=== PATIENT | female | born 1980 | race Caucasian/White ===

== ENCOUNTER 2017-04-10 10:32 | Emergency (ER) | payer SELFPAY ==
--- NOTE | 2017-04-10 10:33 | ED Physician Documentation ---
General Adult - HISTORIAN Historian: patient - HPI Stated Complaint: right shoulder pain Chief Complaint: Shoulder Injury/ Pain Onset: days ago (3) Timing: still present Severity: mild Further Comments: yes (She states 3 days ago she was throwing hay when feeding her animals and she notes that she has had some pain in the right shoulder since. She has no decreased ROM. She does have pain with active elevation. She states she has no relief with heat/ice/OTC meds. Denies any previous injury.) Last known Well Code/Unknown Code: Unknown - ROS CONST: no problems EYES/ENT: none CVS/RESP: none GI/: none MS/SKIN/LYMPH: none - PAST HX Past History: none Other History: none Surgeries/Procedures: hysterectomy, other (Gallbladder, Appy, T&A) Immunizations: UTD - SOCIAL HX Smoking History: non-smoker Alcohol Use: none Drug Use: none - FAMILY HX Family History: No - REVIEWED ASSESSMENTS Nursing Assessment Reviewed: Yes Vitals Reviewed: Yes General Adult Physical Exam - PHYSICAL EXAM GENERAL APPEARANCE: no distress EENT: eye inspection normal NECK: normal inspection RESPIRATORY: no resp distress, chest non-tender, breath sounds normal CVS: reg rate & rhythm, heart sounds normal, equal pulses ABDOMEN: soft SKIN: warm/dry, normal color EXTREMITIES: non-tender, other (pain with elevation on right shoulder. no decreased ROM. Pulses + Cap refill + pain with palpation to shoulder. No obvious deformity ) NEURO: oriented X3, CN's nml as tested, motor nml, sensation nml, mood/affect nml, cognition normal Discharge Clincal Impression: Right shoulder pain Qualifiers: Chronicity: acute Qualified Code(s): M25.511 - Pain in right shoulder Referrals: Primary Doctor,No [Primary Care Provider] - 2 Days Comments: 1. Ibuprofen 800 mg BID as needed for pain 2. Cyclobenzaprine 10 mg BID as needed for muscle pain 3. Heat 4. Rest 5. Follow up with PCP 2-4 days 6. Return to ER if any concerns Condition: Stable Disposition: 01 HOME, SELF-CARE Decision to Admit: NO Date of Decison to Admit: 04/10/17 Decision Time: 10:59
[2017-04-10 10:55] VITALS: BP 133/90
== END 2017-04-10 11:03 | disposition home or self-care (01) ==
LOC: ED 10:32
DX: M25.511 Pain in right shoulder (principal)
CPT/HCPCS: 99282

== ENCOUNTER 2017-04-13 18:12 | Emergency (ER) | payer SELFPAY ==
--- NOTE | 2017-04-13 18:21 | ED Physician Documentation ---
Upper Extremity Injury - HISTORIAN Historian: patient - HPI Chief Complaint: Upper Extremity Injury Onset: days ago (3 days ago, Wednesday) Where: home Severity: moderate Duration: persistent since Context: blow (hit a concrete wall when mad) Modifying Factors: pain on movement - ROS CONST: denies: fever, chills CVS/RESP: none NEURO: none Comment: partial hysterectomy 2008 - PAST HX Past History: none, Rt handed, other Allergies/Adverse Reactions: Allergies Allergy/AdvReac Type Severity Reaction Status Date / Time Penicillins Allergy Verified 04/13/17 18:25 codeine AdvReac Headache Verified 04/13/17 18:25 ketorolac tromethamine AdvReac Headache Verified 04/13/17 18:25 [From Toradol] Home Medications: Ambulatory Orders Medication Instructions Recorded NK [NK] 04/13/17 - SOCIAL HX Smoking History: non-smoker Alcohol Use: none Drug Use: none - FAMILY HX Family History: no significant history - VITAL SIGNS Vital Signs: Vital Signs Temp Pulse Resp BP Pulse Ox 98.3 F 100 H 16 145/85 94 04/13/17 18:15 04/13/17 18:15 04/13/17 18:15 04/13/17 18:15 04/13/17 18:15 - REVIEWED ASSESSMENTS Nursing Assessment Reviewed: Yes Vitals Reviewed: Yes Progress - Progress Progress: Patient has been noted to have been to multiple ED and getting narcotic pain medications from multiple providers. ED Results Lab/Radiology - Radiology Radiology Impressions: Right hand 3 views History: Fall pain after injury 4 days ago Findings: Oblique lucency and sclerosis is observed in the distal 5th metacarpal , indeterminate for a nondisplaced fracture of uncertain age. There is adjacent soft tissue swelling. The remaining right hand is intact. Impression: Equivocal distal 5th metacarpal fracture of uncertain age. - Orders Orders: ED Orders Category Date Time Status HAND 3 VIEWS OR MORE [RAD] Stat Exams 04/13/17 Completed fentaNYL CITRATE/PF [Duragesic] Med 04/13/17 18:27 Discontinued 25 mcg IVP NOW ONE fentaNYL CITRATE/PF [Duragesic] Med 04/13/17 18:32 Discontinued 50 mcg IM NOW ONE Upper Extremity Injury Physic - Physical Exam General Appearance: alert, mild distress Hand: bone tenderness (over distal 5th metacarpal area), ecchymosis (over the 4th and 5th distal metacarpal area), limited ROM (secondary to pain) Wrist: normal inspection, non-tender, no evidence of injury, normal ROM Elbow/Forearm: normal inspection, non-tender, no evidence of injury, normal ROM Shoulder: normal inspection Neuro/Vascular/Tendon: no vascular compromise, motor nml, sensation nml Skin: warm,dry Resp/CVS: chest non-tender, breath sounds nml, heart sounds nml, no resp. distress Discharge Clincal Impression: Contusion of hand Qualifiers: Encounter type: initial encounter Laterality: right Qualified Code(s): S60.221A - Contusion of right hand, initial encounter Referrals: Primary Doctor,No [Primary Care Provider] - 2 Days Additional Instructions: Take aleve 220mg tablets (2 tablets) twice a day with food. Cool compress to the hand area. Avoid further injury to the hand. If symptoms do not improve to follow-up with your primary care provider. Condition: Stable Disposition: 01 HOME, SELF-CARE Decision to Admit: NO Date of Decison to Admit: 04/13/17 Decision Time: 18:52
[2017-04-13] MEDS ORDERED: fentaNYL CITRATE/PF 100 MCG/ 2ML AMP IVP ONE (18:27)
[2017-04-13] MEDS: fentaNYL CITRATE/PF 100 MCG/ 2ML AMP IM ONE (18:40)
--- NOTE | 2017-04-13 18:57 | Diagnostic Imaging Report ---
JONI JURADO [facility] [address] [facility] [address] [address] Report Submission Date: Apr 13, 2017 6:53:33 PM [employer]IEF OF [employer]ODUCTION Patient Study Name: RACHAEL ORO Date: Apr 13, 2017 6:32:14 PM [employer]IE[employer] Modality Type: DX Gender: F Description: UPPER EXTREMITY : 80 Institution: [facility] Physician: JONI JURADO Right hand 3 views History: Fall pain after injury 4 days ago Findings: Oblique lucency and sclerosis is observed in the distal 5th metacarpal , indeterminate for a nondisplaced fracture of uncertain age. There is adjacent soft tissue swelling. The remaining right hand is intact. Impression: Equivocal distal 5th metacarpal fracture of uncertain age. Electronically signed on Apr 13, 2017 6:53:33 PM CHIEF OF PRODUCTION by: Palmer PENA
[2017-04-13 19:04] VITALS: BP 130/68
== END 2017-04-13 19:00 | disposition home or self-care (01) ==
LOC: ED 18:12
DX: S60.221A Contusion of right hand, initial encounter (principal); X58.XXXA Exposure to other specified factors, initial encounter; Y92.9 Unspecified place or not applicable; Y93.9 Activity, unspecified
CPT/HCPCS: 73130; J3010; 96372; 99283

== ENCOUNTER 2017-06-01 09:23 | Emergency (ER) | payer SELFPAY ==
[2017-06-01 09:44] VITALS: BP 121/89
--- NOTE | 2017-06-01 09:58 | ED Physician Documentation ---
Low Back Pain - HISTORIAN Historian: patient - HPI Stated Complaint: Lower back pain Chief Complaint: Lower Extremity Problem Additional Information: Patient was bent over tieing a horse up on Wednesday noc when it moved and jerked she causing injury to ther lower back area. Had some immediate pain. Has been trying to treat with ibuprofen, tylenol, ice heat. No history of previous back injuries. No radiation of the pain. Further Comments: no - ROS CONST: no problems - PAST HX Past History: other (none) Other History: other (none) Surgeries/Procedures: appendectomy, cholecystectomy, hysterectomy, other (T&A, right ooperectomy) Immunizations: referred to PCP Allergies/Adverse Reactions: Allergies Allergy/AdvReac Type Severity Reaction Status Date / Time Penicillins Allergy Verified 06/01/17 09:44 codeine AdvReac Headache Verified 06/01/17 09:44 ketorolac tromethamine AdvReac Headache Verified 06/01/17 09:44 [From Toradol] Home Medications: Ambulatory Orders Medication Instructions Recorded Meloxicam [Mobic] 7.5 mg PO BID PRN #30 tablet 06/01/17 - SOCIAL HX Smoking History: non-smoker Alcohol Use: none Drug Use: none - FAMILY HX Family History: other (mother breast cancer) - VITAL SIGNS Vital Signs: Vital Signs Temp Pulse Resp BP Pulse Ox 95.7 F L 76 16 121/89 98 06/01/17 11:22 06/01/17 11:22 06/01/17 11:22 06/01/17 11:22 06/01/17 11:22 - REVIEWED ASSESSMENTS Nursing Assessment Reviewed: Yes Vitals Reviewed: Yes ED Results Lab/Radiology - Radiology Radiology Impressions: Examination: Plain film lumbar spine History: LOW LEFT SIDE BACK PAIN AFTER PULLING ON HORSE X 2 DAYS AGO (Hx) Findings: 3 views of the lumbar spine demonstrate normal height. No anterior compression. Few anterior osteophytes. No soft tissue abnormalities. Impression: Early degenerative spurring. No vertebral body compression deformity. - Orders Orders: ED Orders Category Date Time Status L SPINE 2 OR 3 VIEWS [RAD] Stat Exams 06/01/17 Completed Low Back Pain/Injury - Physical Exam General Appearance: moderate distress EENT: ENT inspection normal, pharynx normal Neck: non-tender Resp/CVS: chest non-tender, breath sounds nml, heart sounds nml, no resp. distress, lungs clear, reg. rate & rhythm Abdomen: non-tender, no organomegaly Back: non-tender Straight Leg Raising: Negative Left, Negative Right Neuro/Psych: oriented x3, motor nml, sensation nml, reflexes nml, mood/affect nml Discharge Clincal Impression: Low back pain Qualifiers: Chronicity: acute Back pain laterality: bilateral Sciatica presence: without sciatica Qualified Code(s): M54.5 - Low back pain Prescriptions: Meloxicam [Mobic] 7.5 mg PO BID PRN #30 tablet PRN Reason: Pain Referrals: Primary Doctor,No [Primary Care Provider] - 2 Days Additional Instructions: Do exercises as instructed. Take Mobic with food as needed for pain. If you continue to have problems to follow-up with your primary care provider for further pain management and diagnostic studies. Decision to Admit: NO Date of Decison to Admit: 06/01/17 Decision Time: 11:14
--- NOTE | 2017-06-01 11:19 | Diagnostic Imaging Report ---
JONI JURADO [facility] [address] [facility] [address] Report Submission Date: Jun 01, 2017 10:32:16 AM CDT Patient Study Name: RACHAEL ORO Date: Jun 01, 2017 10:10:57 AM CDT Modality Type: DX Gender: F Description: SPINE : 80 Institution: [facility] Physician: JONI JURADO Examination: Plain film lumbar spine History: LOW LEFT SIDE BACK PAIN AFTER PULLING ON HORSE X 2 DAYS AGO (Hx) Findings: 3 views of the lumbar spine demonstrate normal height. No anterior compression. Few anterior osteophytes. No soft tissue abnormalities. Impression: Early degenerative spurring. No vertebral body compression deformity. Electronically signed on Jun 01, 2017 10:32:16 AM CDT by: Leroy PENA
== END 2017-06-01 11:22 ==
LOC: ED 09:23
DX: M54.5 Low back pain (principal)
CPT/HCPCS: 72100; 99283

== ENCOUNTER 2017-06-26 14:33 | Emergency (ER) | payer SELFPAY ==
--- NOTE | 2017-06-26 15:22 | ED Physician Documentation ---
General Adult - HISTORIAN Historian: patient - HPI Stated Complaint: Back Pain Chief Complaint: Low Back Pain/ Injury Additional Information: 36yo white female who was lifting a basket of food and started to have some pain in the lower left back area . No rpevious back injury or pain noted. Constant, worse with standing and walking. Nothing seems to help with it. Has been taking Ibuprofen and tyleno without much improvement. Onset: days ago () Timing: still present Severity: moderate Modifying Factors: worse with walking Context: lift ing something started pain. Quality: constant sharp pain Further Comments: no - ROS CONST: no problems. denies: fever, chills - PAST HX Past History: none, other (lft ovrian cyst) Other History: none Surgeries/Procedures: , cholecystectomy, other (appendectomy, T & A, partial hysterrectomy, ) Immunizations: referred to PCP Allergies/Adverse Reactions: Allergies Allergy/AdvReac Type Severity Reaction Status Date / Time Penicillins Allergy Verified 06/01/17 09:44 codeine AdvReac Headache Verified 06/01/17 09:44 ketorolac tromethamine AdvReac Headache Verified 06/01/17 09:44 [From Toradol] Home Medications: Ambulatory Orders Medication Instructions Recorded Meloxicam [Mobic] 7.5 mg PO BID PRN #20 tablet 06/26/17 - SOCIAL HX Smoking History: non-smoker Alcohol Use: none Drug Use: none - FAMILY HX Family History: Yes - VITAL SIGNS Vital Signs: Vital Signs Temp Pulse Resp BP Pulse Ox 98 F 75 18 145/90 96 06/26/17 14:35 06/26/17 14:35 06/26/17 14:35 06/26/17 14:35 06/26/17 14:35 - REVIEWED ASSESSMENTS Nursing Assessment Reviewed: Yes Vitals Reviewed: Yes General Adult Physical Exam - PHYSICAL EXAM GENERAL APPEARANCE: mild distress NECK: normal inspection RESPIRATORY: no resp distress, chest non-tender, breath sounds normal. No: wheezes, rales, rhonchi CVS: reg rate & rhythm, heart sounds normal, equal pulses, no murmur, no gallop RECTAL: hemorrhoids BACK: other (tenderness over the lower lumbar area, no muscle spasms noted, No bony abnl noted. ) SKIN: warm/dry EXTREMITIES: non-tender NEURO: oriented X3, motor nml, sensation nml, mood/affect nml, cognition normal Discharge Clincal Impression: Low back strain Prescriptions: Meloxicam [Mobic] 7.5 mg PO BID PRN #20 tablet PRN Reason: Pain Referrals: Primary Doctor,No [Primary Care Provider] - 2 Days Condition: Stable Disposition: 01 HOME, SELF-CARE Decision to Admit: NO Date of Decison to Admit: 06/26/17 Decision Time: 15:33
[2017-06-26] MEDS: NAPROXEN 250 MG TABLET PO ONE (15:38)
[2017-06-26] MEDS: NAPROXEN 250 MG TABLET ONE (15:42)
[2017-06-26 15:47] VITALS: BP 130/68
== END 2017-06-26 15:45 | disposition home or self-care (01) ==
LOC: ED 14:33
DX: M54.5 Low back pain (principal)
CPT/HCPCS: 99283